=== PATIENT | female | born 1940 | race Caucasian/White ===

== ENCOUNTER 2022-08-12 11:39 | Outpatient (CLI) | payer MEDICARE | END 2022-08-12 11:40 | disposition home or self-care (01) | LOC: CSHRAD 11:39 | PROVIDERS: ATTEND Neurological Surgery | DX: M47.22 Other spondylosis with radiculopathy, cervical region (principal); M43.12 Spondylolisthesis, cervical region; Z98.890 Other specified postprocedural states; M47.26 Other spondylosis with radiculopathy, lumbar region | CPT/HCPCS: 72050; 72110 ==